=== PATIENT | male | born 1970 | race Caucasian/White ===

== ENCOUNTER 2017-08-14 14:07 | Emergency (ER) | payer OTHER ==
[~2017-08-14] VITALS: Ht 160 cm; Wt 68.0 kg
[2017-08-14] MEDS ORDERED: MOTRIN IB200 MG (14:19)
== END 2017-08-14 19:50 | disposition home or self-care (01) ==
LOC: ER 14:07
DX: R51 Headache (principal)

== ENCOUNTER → 2017-09-28 | Emergency (ER) | payer OTHER ==
[~2017-09-28] VITALS: Ht 160 cm; Wt 68.0 kg
[~2017-09-28] MED LIST: MOTRIN IB200 MG; PROTONIX40 MG PO; VYTORIN 10-201 EACH; ZANTAC300 MG PO; ZOFRAN4 MG PO
== END | disposition home or self-care (01) ==
LOC: ER 21:10
DX: K29.70 Gastritis, unspecified, without bleeding (principal); R10.13 Epigastric pain

== ENCOUNTER 2017-10-12 07:09 | Outpatient (CLI) | payer OTHER | END 2017-10-12 07:22 | disposition home or self-care (01) | LOC: TOM 07:09 | DX: R10.84 Generalized abdominal pain (principal) ==

== ENCOUNTER 2017-10-18 14:59 | Emergency (ER) | payer OTHER ==
[~2017-10-18] VITALS: Ht 160 cm; Wt 65.8 kg
== END 2017-10-18 23:03 | disposition home or self-care (01) ==
LOC: ER 14:59 → CPU-OBS 15:22 → ER 15:22
DX: R07.89 Other chest pain (principal)
CPT/HCPCS: G0378; G0379; 93005

== ENCOUNTER 2018-03-07 05:12 | Emergency (ER) | payer OTHER ==
[~2018-03-07] VITALS: Ht 160 cm; Wt 68.0 kg
[2018-03-07] MEDS ORDERED: PAXIL20 MG (05:31)
== END 2018-03-07 08:33 | disposition designated cancer center or children's hospital (05) ==
LOC: ER 05:12 → CPU-OBS 05:21 → ER 08:33
DX: I21.3 ST elevation (STEMI) myocardial infarction of unspecified site (principal)
CPT/HCPCS: G0378; G0379; 93005